=== PATIENT | female | born 1960 ===

== ENCOUNTER 2018-06-28 00:02 | Emergency (ER) | payer MEDICAID ==
[2018-06-28] MEDS ORDERED: DiphenhydrAMINE 50 mg/ml Inj IVP STA (00:55)
[2018-06-28] MEDS ORDERED: Sodium Chloride 0.9% 500 ML IV ONE ×2 (00:56→01:19)
[2018-06-28] MEDS ORDERED: DiphenhydrAMINE 50 mg/ml Inj ONE (01:20)
--- NOTE | 2018-06-28 01:22 | C.PDOC ---
History Of Present Illness 57 year old female with Hx of migraine headaches presents with headache similar to her past migraines. Patient states this is not the worse headache of her life and denies thunderclap association. She took naproxen at home with no relief. Patient states she had some nausea and vomiting which concerned her prompting visit. Denies fever or chills. Time Seen by Provider: 06/28/18 00:55 Chief Complaint (Nursing): Headache History Per: Patient History/Exam Limitations: no limitations Onset/Duration Of Symptoms: Hrs Current Symptoms Are (Timing): Still Present Preceeding Symptoms: Known Migraine Symptoms Associated Symptoms: Nausea, Vomiting Recent travel outside of the [place]: No Past Medical History Reviewed: Historical Data, Nursing Documentation, Vital Signs Vital Signs: Last Vital Signs Temp 97.9 F 06/28/18 00:15 Pulse 83 06/28/18 00:15 Resp 14 06/28/18 00:15 BP 127/77 06/28/18 00:15 Pulse Ox 99 06/28/18 00:15 Primary Care Provider: Nato Doran - Medical History PMH: Diabetes, HTN, Migraine Family History: States: Unknown Family Hx - Social History Hx Tobacco Use: No Hx Alcohol Use: No Hx Substance Use: No - Immunization History Hx Tetanus Toxoid Vaccination: No Hx Influenza Vaccination: No Hx Pneumococcal Vaccination: No Review Of Systems Constitutional: Negative for: Fever, Chills ENT: Negative for: Nose Discharge, Nose Congestion Respiratory: Negative for: Cough Gastrointestinal: Positive for: Nausea, Vomiting Neurological: Positive for: Headache. Negative for: Weakness, Numbness Physical Exam - Physical Exam Appears: Non-toxic Skin: Normal Color, Warm Head: Atraumatic, Normacephalic, No Other (Facial swelling or tenderness) Eye(s): bilateral: Normal Inspection Ear(s): Bilateral: Normal Nose: Normal Oral Mucosa: Moist Throat: Normal, No Erythema, No Exudate Neck: Normal, No Midline Cervical Tenderness, No Paracervical Tenderness, Supple Extremity: Normal ROM (x4) Neurological/Psych: Oriented x3, Normal Speech, Normal Motor, Normal Sensation Gait: Steady ED Course And Treatment O2 Sat by Pulse Oximetry: 99 (Room air) Pulse Ox Interpretation: Normal Progress Note: Benadryl, reglan, toradol, and IV fluids administered.Pt reports complete resolution of her headache and will d/c on fioricet and advised PMD / neurologist veewo up Reassessment Condition: Improved Disposition Counseled Patient/Family Regarding: Diagnosis, Need For Followup, Rx Given - Disposition Referrals: [facility] [Outside] Disposition: HOME/ ROUTINE Disposition Time: 02:17 Condition: STABLE Additional Instructions: Please follow up with PMD Take medications as directed Return to ER if worse Prescriptions: Acetaminophen/Butalbital/Caf [Fioricet] 1 tab PO TID PRN #20 tab PRN Reason: Headache Instructions: Migraine Headache (DC) Forms: [facility] (Bulgarian) - Clinical Impression Clinical Impression: Migraine - 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 - Scribe Statement The provider has reviewed the documentation as recorded by the Scribcindy Seymour All medical record entries made by the Tayaibcindy were at my direction and personally dictated by me. I have reviewed the chart and agree that the record accurately reflects my personal performance of the history, physical exam, medical decision making, and the department course for this patient. I have also personally directed, reviewed, and agree with the discharge instructions and disposition.
[2018-06-28 02:23] VITALS: BP 124/76; PULSE 68; RESP 18; TEMP 98.3
[2018-06-28 03:17] VITALS: O2SAT 99
== END 2018-06-28 02:34 | disposition home or self-care (01) ==
LOC: C.ER 00:02
DX: G43.909 Migraine, unspecified, not intractable, without status migrainosus (principal)
CPT/HCPCS: 96374; 96375; 99284; J1200; J1885; J2765; J7040

== ENCOUNTER → 2018-07-02 | Outpatient (CLI) | payer MEDICAID | LOC: C.LAB 09:44 | DX: Z01.818 Encounter for other preprocedural examination (principal) ==